=== PATIENT | female | born 1995 | race Caucasian/White ===

== ENCOUNTER 2016-04-02 14:07 | Emergency (ER) | payer OTHER, BC ==
[2016-04-02 14:19] VITALS: BP 119/87; PULSE 81; RESP 16; TEMP 97.9; O2SAT 97
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
[2016-04-02 16:17] LABS: COLOR YELLOW; LEUKOCYTE ESTERASE,URINE NEGATIVE (NEGATIVE); NITRITE,URINE NEGATIVE (NEGATIVE)
[2016-04-02 16:28] LABS: MUCUS TRACE /lpf (NONE-1+)
== END 2016-04-02 16:52 | disposition home or self-care (01) ==
DX: S09.90XA Unspecified injury of head, initial encounter (principal); S16.1XXA Strain of muscle, fascia and tendon at neck level, initial encounter; S80.01XA Contusion of right knee, initial encounter; F17.200 Nicotine dependence, unspecified, uncomplicated; V46.5XXA Car driver injured in collision with other nonmotor vehicle in traffic accident, initial encounter; Y92.410 Unspecified street and highway as the place of occurrence of the external cause; Y99.8 Other external cause status; Y93.89 Activity, other specified

== ENCOUNTER 2016-09-27 19:21 | Emergency (ER) | payer BC, OTHER ==
[2016-09-27 19:33] VITALS: TEMP 98.4
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
[2016-09-27 20:37] VITALS: BP 135/73; PULSE 81; RESP 16; O2SAT 95
== END 2016-09-27 20:36 | disposition home or self-care (01) ==
DX: K62.89 Other specified diseases of anus and rectum (principal); F17.200 Nicotine dependence, unspecified, uncomplicated